=== PATIENT | female | born 1955 | race Caucasian/White ===

== ENCOUNTER → 2017-11-13 | Outpatient (CLI) | payer BC | END | disposition home or self-care (01) | LOC: KCIC 13:55 | DX: M17.0 Bilateral primary osteoarthritis of knee (principal); M81.0 Age-related osteoporosis without current pathological fracture; G89.29 Other chronic pain | CPT/HCPCS: 73562 ==

== ENCOUNTER → 2018-01-15 | Outpatient (CLI) | payer BC | END | disposition home or self-care (01) | LOC: KCIC MRI 15:53 | DX: S82.141A Displaced bicondylar fracture of right tibia, initial encounter for closed fracture (principal); M87.861 Other osteonecrosis, right tibia; M22.41 Chondromalacia patellae, right knee; X58.XXXA Exposure to other specified factors, initial encounter; Y93.89 Activity, other specified; Y92.89 Other specified places as the place of occurrence of the external cause; Y99.8 Other external cause status | CPT/HCPCS: 73721 ==

== ENCOUNTER → 2018-07-12 | Outpatient (CLI) | payer BC ==
[2014-11-15 11:10] VITALS: BP 126/60
[~2018-07-12] MED LIST: LEVO500T8 PO; PRED50TA PO; TRAZ-85 PO
--- NOTE | 2018-07-12 16:31 | RAD ---
CT of the chest without contrast, 07/12/2018: HISTORY: Cough, bronchitis, previous lung surgery Noncontrast scans were obtained as requested. Comparison is made to a study from 11/05/2014. There are surgical clips in the left upper chest anteriorly and at the left parahilar region compatible with a previous partial pneumonectomy. There are linear opacities in the remaining left lung compatible with scarring. Upper mediastinal fat extends into the left apical region on a postsurgical basis. A couple of minimal linear parenchymal scars are present on the right. No pulmonary mass or significant consolidation is seen on either side. There is no evidence of pleural fluid. There is distortion and apparent narrowing of the origin of the left lower lobe bronchus. This may be due to scarring, although on coronal image #35 of series #5 there is a suggestion of a small polypoid intraluminal nodule at that level. There is calcific plaquing of the thoracic aorta without evidence of aneurysm. The heart is of normal size. No mediastinal adenopathy is seen. Several low density lesions in the liver are probably cysts. There is mild bilateral perinephric edema or scarring. Bilateral breast implants are again noted. IMPRESSION: 1. Status post partial left pneumonectomy. 2. Mild bilateral parenchymal scarring. 3. Narrowing of the proximal left lower lobe bronchus as described above which may be due to scarring, although a neoplastic etiology cannot be excluded. Correlation with bronchoscopic findings may be indicated. PQRS Compliance Statement: One or more of the following individualized dose reduction techniques were utilized for this examination: 1. Automated exposure control 2. Adjustment of the mA and/or kV according to patient size 3. Use of iterative reconstruction technique Electronically signed by: Rambo Conner MD (07/12/2018 4:27 PM) [facility]
== END | disposition home or self-care (01) ==
LOC: CT 08:34
PROVIDERS: ATTEND Internal Medicine Pulmonary Disease
DX: R91.8 Other nonspecific abnormal finding of lung field (principal); K76.89 Other specified diseases of liver; M17.0 Bilateral primary osteoarthritis of knee; I48.91 Unspecified atrial fibrillation; E78.5 Hyperlipidemia, unspecified; Z98.890 Other specified postprocedural states
CPT/HCPCS: 71250

== ENCOUNTER → 2018-08-04 | Day surgery (SDC) | payer BC ==
[~2018-08-04] MED LIST changes: +0.9 % SODIUM CHLORIDE 10 ML DISP.SYRIN. IV PRN; +ATOR20TA58 PO; +CELE200C PO; +EPINEPHrine 1 MG/ML VIAL ONE; +HYDROmorphone 2 MG/ML VIAL IV PRN; +IV RINGERS,LACTATED 1000ML 1,000 ML IV SCH; +LIDOCAINE 1% Multi-Dose 50 ML VIAL. ONE; +LIDOCAINE 1% PF 2 ML VIAL. ID PRN; +LIDOCAINE 2% VISCOUS 100 ML BOTTLE. ONE; +LIDOCAINE 4% TOPICAL 50 ML SOLUTION. ONE; +MORPHINE SULFATE 2 MG/ML VIAL. IV PRN; +OMEP20CA9 PO; +ONDANSETRON PF 4 MG/2 ML VIAL. IV PRN; +PROAIR RESPICL90 MCG IH; +PROCHLORPERAZINE 10 MG/2 ML VIAL. IV PRN; +fentaNYL PF VIAL 100 MCG/2 ML VIAL IV PRN
[2018-08-04] MEDS: ALBUTEROL SULFATE 2.5 MG/3 ML NEBU. NEB PRN (12:33)
[2018-08-04] MEDS: LIDOCAINE 1% Multi-Dose 50 ML VIAL. INJ PRN (12:34)
[2018-08-04] MEDS: LIDOCAINE 2% VISCOUS 100 ML BOTTLE. MM PRN (12:35)
[2018-08-04] MEDS: LIDOCAINE 4% TOPICAL 50 ML SOLUTION. MM PRN (12:35)
[2018-08-04 12:39] LABS: BASO # 0.1 x10^3/uL (0.0-0.2); BASO % 1 % (0-3); EOS # 0.1 x10^3/uL (0.0-0.7); EOS % 2 % (0-3); HEMATOCRIT 39.7 % (36.0-47.0); HEMOGLOBIN 13.6 g/dL (12.0-15.5); LYMPH # 1.8 x10^3/uL (1.0-4.8); LYMPH % 22 % (24-48); MEAN CORPUSCULAR HEMOGLOBIN 29 pg (25-35); MEAN CORPUSCULAR HGB CONC 34 g/dL (31-37); MEAN CORPUSCULAR VOLUME 84 fL (79-100); MONO # 0.5 x10^3/uL (0.0-1.1); MONO % 6 % (0-9); NEUT # 5.7 x10^3uL (1.8-7.7); NEUT % 70 % (31-73); PLATELET COUNT 338 x10^3/uL (140-400); RED BLOOD COUNT 4.71 x10^6/uL (3.50-5.40); RED CELL DISTRIBUTION WIDTH 13.8 % (11.5-14.5); WHITE BLOOD COUNT 8.3 x10^3/uL (4.0-11.0)
[2018-08-04] MEDS: IV RINGERS,LACTATED 1000ML 1,000 ML IV SCH (13:09)
[2018-08-04] MEDS: EPINEPHrine 1 MG/ML VIAL INJ PRN (13:30)
--- NOTE | 2018-08-04 14:03 | OP ---
DATE OF SURGERY: 08/04/2018 PROCEDURE: Bronchoscopy, bronchoalveolar lavage, forceps biopsy. INDICATIONS: The patient is a 62-year-old with a history of COPD, tobacco use, previous necrotizing pneumonia, underwent a left upper lobectomy, presented with an abnormal CT revealing possible narrowing on the left bronchus, undergoing a diagnostic bronchoscopy. Risks, benefits, and alternatives reviewed with the patient and she consented. SEDATION: Please see anesthesia notes. DESCRIPTION OF PROCEDURE: A timeout was performed prior to sedation. Vital signs and O2 saturation were maintained within normal limits throughout the procedure. The bronchoscope was then passed through the right naris. The vocal cords were identified. The vocal cords were anesthetized with a total of 5 mL of 4% lidocaine moving bilaterally without any dysfunction prior to utilizing the lidocaine. The bronchoscope was passed through the vocal cords into the proximal trachea, which was normal. The distal trachea was likewise normal. The right segments and subsegments were visualized. There were no endobronchial lesions. Upon inspecting the left side, there was evidence of previous left upper lobe lobectomy. The stump was intact. There was a small polyp formation over the stump, which I biopsied x 1. This patient started having small amounts of bleeding after the biopsy. A lavage was performed. Epinephrine was applied to the area to cause vasoconstriction and hemostasis. FINDINGS: 1. Normal vocal cords. 2. No endobronchial lesion on the right. 3. Evidence of previous left upper lobectomy with stump intact and a polyp over the stump, which I suspect is granulation and scar tissue. PLAN: We will await the BAL results and biopsy results of the polyp on the stump. The patient tolerated the procedure well with no immediate complications. CARTER LESTER MD DR: KESHAV/hebert JOB#: [id number] / [id number] IRIS Marshall MD
[2018-08-04 14:25] VITALS: BP 102/50
--- NOTE | 2018-08-05 14:10 | PATHOLOGY ---
[facility] Accession Number: [id number] . 01 Material submitted: . BRONCH BIOPSY OLIVIER . 01 Clinical history: . Pulmonary infiltrate . 02 Diagnosis: Bronchial biopsy, left upper lobe: - Chronic inflammation, mild. . (JPM:mml; 08/05/18) M/08/05/2018 . 02 Comment: There is no evidence of malignancy. . (JPM:mm; 08/05/18) . 02 Electronically signed: . Mejia Abbott MD, Pathologist NPI- [id number] . 01 Gross description: . Received in formalin labeled "Pressler, Marlin, BBX OLIVIER," and additionally labeled on the requisition as, "bronch biopsy OLIVIER" is a single segment of ramirez soft tissue measuring 0.3 cm in maximum dimension. The specimen is entirely submitted in cassette A1. (TSD; 08/04/2018) TOB/TOB . 02 Pathologist provided ICD-10: J42 . 02 CPT . 091005 Specimen Comment: A courtesy copy of this report has been sent to Specimen Comment: [phone], . Specimen Comment: Report sent to / DR CONTRERAS Specimen Comment: A duplicate report has been generated due to demographic updates. Performed at: 01 [facility] [address], [place] [id number] MD Prem Cali MD Phone: [phone] Performed at: 02 [facility] [address] [place], [place] [id number] MD Mejia Abbott MD Phone: [phone]
--- NOTE | 2018-08-05 18:08 | PATHOLOGY ---
Note [facility] Accession Number: [id number] TESTS RESULT FLAG UNITS REF RANGE LAB Clinician Provided Cytology Information No. of containers..01 Other (Miscellaneous) Source: R/L BAL DIAGNOSIS: R/L BAL INADEQUATE, INSUFFICIENT CELLS FOR STUDY. SCANT CELLULARITY. RARE BRONCHIAL EPITHELIAL CELLS, FEW INFLAMMATORY CELLS, AND MANY RED BLOOD CELLS PRESENT. Signed out by: Mejia Abbott MD, Pathologist NPI- [id number] Performed by: Teresa Andujar, Emergency Department Technician ([facility]) Gross description: 01 8ML, RED, SOLID /LCS FLAG LEGEND: L-Low Normal,H-High Normal,LL-Alert Low,HH-Alert High <-Panic Low,>-Panic High,A-Abnormal,AA-Critical Abnormal Performed at: [address] [id number] Prem Cali MD, 02 [facility] [address] [place] [address] Mejia Abbott MD, Specimen Comment: A courtesy copy of this report has been sent to Specimen Comment: [phone]. Specimen Comment: Report sent to Specimen Comment: A duplicate report has been generated due to demographic updates. Performed at: [address] [place] [id number] MD Prem Cali MD Phone: [phone]
== END | disposition home or self-care (01) ==
LOC: SURG 11:59
PROVIDERS: ATTEND Internal Medicine Pulmonary Disease
DX: J98.4 Other disorders of lung (principal); J44.9 Chronic obstructive pulmonary disease, unspecified; Z87.01 Personal history of pneumonia (recurrent); Z79.01 Long term (current) use of anticoagulants; Z72.0 Tobacco use; Z98.890 Other specified postprocedural states; Z88.8 Allergy status to other drugs, medicaments and biological substances
CPT/HCPCS: 31624; 31625; 36415; 85025; 85610; 85730; 87070; 87205; 88112; 88305; 94640; J0171; J7613; 31622

== ENCOUNTER → 2018-09-18 | Outpatient (CLI) | payer BC ==
[2018-08-04 14:25] VITALS: BP 102/50
[~2018-09-18] MED LIST changes: -0.9 % SODIUM CHLORIDE 10 ML DISP.SYRIN. IV PRN; -EPINEPHrine 1 MG/ML VIAL ONE; -HYDROmorphone 2 MG/ML VIAL IV PRN; -IV RINGERS,LACTATED 1000ML 1,000 ML IV SCH; -LIDOCAINE 1% Multi-Dose 50 ML VIAL. ONE; -LIDOCAINE 1% PF 2 ML VIAL. ID PRN; -LIDOCAINE 2% VISCOUS 100 ML BOTTLE. ONE; -LIDOCAINE 4% TOPICAL 50 ML SOLUTION. ONE; -MORPHINE SULFATE 2 MG/ML VIAL. IV PRN; -ONDANSETRON PF 4 MG/2 ML VIAL. IV PRN; -PROCHLORPERAZINE 10 MG/2 ML VIAL. IV PRN; -fentaNYL PF VIAL 100 MCG/2 ML VIAL IV PRN
--- NOTE | 2018-09-20 12:47 | RAD ---
DATE: September 18, 2018 EXAM: MAMMO LINDA SCREENING BILATERAL History: Bilateral breast implants. Baseline study. COMPARISON: None. Baseline study. This study was interpreted with the benefit of Computerized Aided Detection (CAD). 2-D digital mammographic views of both breasts were performed in the CC and MLO projections. 3-D digital tomosynthesis images of both breasts were performed in the CC and MLO projections and reviewed on a computer workstation. FINDINGS: Breast Density: FATTY The breast parenchyma is primarily fatty replaced. Breast parenchyma level density A.. There are no dominant suspicious masses, suspicious microcalcifications or evidence of architectural distortion. Bilateral symmetric saline retropectoral breast implants are seen in place. IMPRESSION: No mammographic indicators for malignancy. BI-RADS CATEGORY: 2 BENIGN FINDING RECOMMENDED FOLLOW-UP: 12M 12 MONTH FOLLOW-UP PQRS compliance statement: Patient information was entered into a reminder system with a target due date September 19, 2019 for the next mammogram. Mammography is a sensitive method for finding small breast cancers, but it does not detect them all and is not a substitute for careful clinical examination. A negative mammogram does not negate a clinically suspicious finding and should not result in delay in biopsying a clinically suspicious abnormality. "Our facility is accredited by the [employer] Mammography Program." The patient's breast density may affect the ability of mammography to detect breast cancer. There are 4 categories of breast density, A, B, C and D. Breast density A means that most of the breast tissue is replaced with adipose tissue and therefore is not dense. Breast density B means that the breast tissue is mildly dense and scattered. Breast density C means that the breast tissue is heterogeneously dense. Breast density D means that the breast tissue is very dense. Breast densities especially C and D may decrease the sensitivity of mammography to detect breast cancer. Therefore, the patient may benefit from 3-D breast mammography (3D breast tomography) as a part of their screening mammogram. Insurance may or may not pay for this additional imaging. The patient's breast density based on today's mammogram is category A.
== END | disposition home or self-care (01) ==
LOC: MAMMO 08:49
PROVIDERS: ATTEND Family Medicine
DX: Z12.31 Encounter for screening mammogram for malignant neoplasm of breast (principal)
CPT/HCPCS: 77063; 77067

== ENCOUNTER → 2019-10-14 | Day surgery (SDC) | payer BC ==
[~2019-10-14] MED LIST changes: +BUSP10TA PO; +DILT180C2 PO; +IV RINGERS,LACTATED 1000ML 1,000 ML IV SCH; +LIDOCAINE 2% PF 5 ML VIAL. ONE; +OMEP20CA16 PO; -OMEP20CA9 PO; +PANT40TA77 PO; +PROPOFOL 40 ML IV ONE; +SERT50TA PO; +TRAZ-118 PO; -TRAZ-85 PO
[2019-10-14 09:58] VITALS: BP 117/89
== END | disposition home or self-care (01) ==
LOC: ENDOS 08:19
PROVIDERS: ATTEND Internal Medicine Gastroenterology
DX: Z12.11 Encounter for screening for malignant neoplasm of colon (principal); K64.0 First degree hemorrhoids; K57.30 Diverticulosis of large intestine without perforation or abscess without bleeding; F41.9 Anxiety disorder, unspecified; J43.9 Emphysema, unspecified; K21.9 Gastro-esophageal reflux disease without esophagitis; Z86.718 Personal history of other venous thrombosis and embolism; Z80.3 Family history of malignant neoplasm of breast; Z87.891 Personal history of nicotine dependence; Z79.899 Other long term (current) drug therapy; Z98.51 Tubal ligation status; Z98.890 Other specified postprocedural states; Z91.041 Radiographic dye allergy status
CPT/HCPCS: 45378; J2001; J2704

== ENCOUNTER → 2021-12-02 | Outpatient (CLI) | payer BC ==
[2019-10-14 09:58] VITALS: BP 117/89
[~2021-12-02] MED LIST changes: -IV RINGERS,LACTATED 1000ML 1,000 ML IV SCH; -LEVO500T8 PO; +LEVO500T9 PO; -LIDOCAINE 2% PF 5 ML VIAL. ONE; -PROPOFOL 40 ML IV ONE
--- NOTE | 2021-12-02 14:45 | RAD ---
INDICATION : Routine Screening. COMPARISON: Priors including September 2018 TECHNIQUE: Standard mammogram screening views of the bilateral breasts were obtained with 3D tomosynt hesis. CAD was utilized. FINDINGS: The breasts are scattered density. No definite suspicious mass. Bilateral breast implants are again seen. IMPRESSION: BI-RADS Category 2: Benign findings. Recommend repeat screening examination in one year. The patient was placed into the recall system with a suggested recall date for follow up imaging. Mammography is the most sensitive method for finding small breast cancers, but it does not detect the m all and is not a substitute for careful clinical examination. A negative mammogram does not negate a clinically suspicious finding and should not result in delay in biopsying a clinically suspicious abnormality. Electronically signed by: Nico Isaacs MD (12/02/2021 2:42 PM) [id number]
== END ==
LOC: MAMMO 14:00
PROVIDERS: ATTEND Nurse Practitioner
DX: Z12.31 Encounter for screening mammogram for malignant neoplasm of breast (principal)
CPT/HCPCS: 77063; 77067